=== PATIENT | female | born 1955 | race Caucasian/White ===

== ENCOUNTER → 2016-10-28 | Outpatient (CLI) | payer BC ==
--- NOTE | ~2016-10-28 | MR32 ---
[facility] A Service of [facility] RADIOLOGY TEXT RESULTS PATIENT: ROSALVA SIERRA LOCATION: [facility] : 53 UNIT #: [id number] AGE: [address]: Antonio Ruby MD SEX: F ORDER DR: [id number] [place] [id number] O MR#: [id number] Acc #: [id number] NAME: ROSALVA SIERRA : 1955 SEX: F STUDY DATE/TIME: 10/28/2016 10:14 UNIT: [facility] ROOM: STUDY DESCRIPTION: MR Cervical Wo Contrast Attending Physician: Antonio Ruby M.D. Referring Physician: Antonio Ruby M.D. Ordering Physician: Antonio Ruby M.D. Primary Care Physician: Antonio Ruby M.D. [facility]ENTER REPORT This report is preliminary unless electronic signature is present. EXAM Cervical spine MRI, no contrast 10/28/2016 PROCEDURE Routine cervical spine MRI without contrast COMPARISON None. CLINICAL HISTORY Neck pain and stiffness. Progressively worsening over the past 2-3 months. FINDINGS There is a slight scoliosis and midcervical reversal of lordosis and slight C4-5 anterolisthesis. There is degenerative marrow signal change but no marrow infiltration or replacement. Cord signal appears normal and the posterior fossa and its contents are normal. The paraspinous tissues are normal. At C2-3, the canal and foramina are within normal limits. At C3-4, the canal and foramina are within normal. At C4-5, the canal and foramina are normal. At C5-6, there is a left side disc and osteophyte complex and mild left-sided cord compression without abnormal cord signal. There is no right but [id number] left foraminal narrowing. At C6-7, there is mild canal stenosis at but no cord compression and mild left and no right foraminal stenosis. At C7-T1, the canal and foramina are normal. 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 No abnormal cord signal at this or any level. Dictated by... Lukas De Luna M.D. THIS IS AN ELECTRONICALLY VERIFIED REPORT Lukas De Luna M.D. at 10/29/2016 1:52 PM XANDER/nate TD: 10/29/2016 12:51 JOB #: [id number] [facility]ENTER REPORT Page 1 of 1
== END | disposition home or self-care (01) ==
LOC: SMRI 09:34
DX: M54.2 Cervicalgia (principal); M19.019 Primary osteoarthritis, unspecified shoulder; M80.88XA Other osteoporosis with current pathological fracture, vertebra(e), initial encounter for fracture; M47.812 Spondylosis without myelopathy or radiculopathy, cervical region; M99.81 Other biomechanical lesions of cervical region
CPT/HCPCS: 72141